=== PATIENT | male | born 1985 | race Caucasian/White ===

== ENCOUNTER 2017-09-18 23:46 | Emergency (ER) | payer BC, OTHER ==
[2017-09-19] MEDS ORDERED: Sodium Chloride 0.9% 1,000 ML IV ONE (00:52)
[2017-09-19] MEDS ORDERED: Sodium Chloride 0.9% 2.5 ML Syringe FLUSH PRN ×2 (00:52)
[2017-09-19] MEDS ORDERED: Ondansetron 4 MG/2 ML SDV IVPUSH ONE ×2 (00:52→04:10)
[2017-09-19] MEDS ORDERED: Sodium Chloride 0.9% 10 ML Syringe FLUSH PRN (00:52)
[2017-09-19] MEDS ORDERED: Morphine 2 MG/ML Syringe IVPUSH ONE (00:54)
[2017-09-19 01:22] LABS: CHLORIDE,CL 102 mmol/L (98-107); SODIUM,NA 138 mmol/L (136-148)
[2017-09-19] MEDS ORDERED: HYDROmorphone 2 MG/ML SDV IV ONE (01:36)
[2017-09-19] MEDS ORDERED: HYDROmorphone 1 MG/ML Syringe ONE (01:49)
[2017-09-19] MEDS ORDERED: HYDROmorphone 1 MG/ML Syringe IVPUSH ONE ×2 (01:52→04:14)
[2017-09-19] MEDS ORDERED: Iopamidol 755 Mg/ML 100 ML Bottle IVPUSH ONE (02:15)
[2017-09-19] MEDS ORDERED: Ciprofloxacin in D5W 400 MG in Premix Bag 1 BAG IV STA ×2 (03:17)
[2017-09-19] MEDS ORDERED: metroNIDAZOLE/Normal Saline 500 MG in Premix Bag 1 BAG IV ONE (03:17)
--- NOTE | 2017-09-19 03:30 | EDM.PDOC ---
ED HPI GENERAL MEDICAL PROBLEM - General Chief Complaint: Abdominal Pain Stated Complaint: LOWER ABDOMINAL PAIN Time Seen by Provider: 09/18/17 23:50 Source of Information: Reports: Patient, Family History Limitations: Reports: No Limitations - History of Present Illness INITIAL COMMENTS - FREE TEXT/NARRATIVE: HISTORY AND PHYSICAL: History of present illness: 32-year-old male presenting to urgent department with 3 days of left-sided belly pain. Patient states that 3 days ago he began to have some mild left-sided belly pain. States that he did have some associated nausea and vomiting. He did see a nurse practitioner who took x-rays which showed no constipation but she suggested that he go to the emergency department if continued to feel worse. States that today he was feeling better until this evening after eating began to have increased fever and chills as well as sharp left-sided abdominal pain intermittently. Also states he's had some associated body aches as well as some mild right red blood per rectum. Denies history of kidney stones, dysuria, hematuria, history of diverticulosis or diverticulitis. No history of abdominal surgery. Currently denies any chest pain, palpitations, shortness breath, syncopal episodes, or focal neurologic deficits. Pain is localized to the left side of his lower abdomen. On exam patient is acutely tender in the left lower quadrant. Abdomen is soft, nonrigid, positive bowel sounds, nondistended. Review of systems: As per history of present illness and below otherwise all systems reviewed and negative. Past medical history: As per history of present illness and as reviewed below otherwise noncontributory. Surgical history: As per history of present illness and as reviewed below otherwise noncontributory. Social history: No reported history of drug or alcohol abuse. Family history: As per history of present illness and as reviewed below otherwise noncontributory. Physical exam: HEENT: Atraumatic, normocephalic, pupils reactive, negative for conjunctival pallor or scleral icterus, mucous membranes moist, throat clear, neck supple, nontender, trachea midline. Lungs: Clear to auscultation, breath sounds equal bilaterally, chest nontender. Heart: S1S2, regular, negative for clicks, rubs, or JVD. Abdomen: Soft, nondistended, left lower quadrant tenderness. Negative for masses or hepatosplenomegaly. Negative for costovertebral tenderness. Pelvis: Stable nontender. Genitourinary: Deferred. Rectal: Deferred. Extremities: Atraumatic, negative for cords or calf pain. Neurovascular unremarkable. Neuro: Awake, alert, oriented. Cranial nerves II through XII unremarkable. Cerebellum unremarkable. Motor and sensory unremarkable throughout. Exam nonfocal. Diagnostics: CBC, CMP, lipase, CT abdomen pelvis Therapeutics: 1 L normal saline, 2 mg IV morphine, 1 mg Dilaudid IV, 400 mg IV ciprofloxacin, metronidazole 500 mg IV x1 Impression: Acute diverticulitis Plan: CBC, CMP, lipase were all unremarkable and showed no signs of leukocytosis. Patient remained afebrile throughout his stay. We were able to control his pain with a total of 2 mg of IV morphine and [address] the abdomen and pelvis revealed moderate wall thickening with surrounding inflammatory changes and a thickened diverticula present near the junction of the descending and sigmoid colon and in the mid descending colon most consistent with acute diverticulitis. I discussed the diagnosis at length with the patient and secondary to his current lack of comorbidities felt that he may be a good candidate for outpatient therapy. We discussed this at length and he and his agreed. He was given 400 mg IV ciprofloxacin and 500 mg IV metronidazole while in the emergency room. He was discharged in good condition with instructions to follow-up with general surgery in 3 days for reevaluation. He was also given a prescription for metronidazole 500 mg by mouth 3 times a day 10 days, and ciprofloxacin 500 mg by mouth twice a day 10 days. [place] 5/325 #10 Definitive disposition and diagnosis as appropriate pending reevaluation and review of above. Abd, LLQ Pain Score (Numeric/FACES): 7 - Related Data Allergies Allergy/AdvReac Type Severity Reaction Status Date / Time erythromycin base Allergy Cannot Verified 09/19/17 00:22 [Erythromycin Base] Remember Penicillins Allergy Cannot Verified 09/19/17 00:22 Remember Home Meds: Home Meds Simvastatin [Zocor] 40 mg PO BEDTIME 09/19/17 [History] Past Medical History Cardiovascular History: Reports: High Cholesterol - Infectious Disease History Infectious Disease History: Reports: Chicken Pox - Past Surgical History HEENT Surgical History: Reports: Adenoidectomy, LASIK, Naso-Sinus Surgery, Oral Surgery Musculoskeletal Surgical History: Reports: Other (See Below) Other Musculoskeletal Surgeries/Procedures:: R hand Social & Family History - Tobacco Use Smoking Status *Q: Current Every Day Smoker Years of Tobacco use: 10 Packs/Tins Daily: 1 - Caffeine Use Caffeine Use: Reports: Coffee, Energy Drinks, Soda - Recreational Drug Use Recreational Drug Use: No ED ROS GENERAL - Review of Systems Review Of Systems: ROS reveals no pertinent complaints other than HPI. ED EXAM, GENERAL - Physical Exam Exam: See Below Course - Vital Signs Last Recorded V/S: Last Vital Signs Temp 98.3 F 09/19/17 00:19 Pulse 62 09/19/17 02:10 Resp 16 09/19/17 02:10 BP 141/87 H 09/19/17 02:10 Pulse Ox 98 09/19/17 02:10 - Orders/Labs/Meds Orders: Active Orders 24 hr Category Date Time Status Abdomen Pelvis w Cont [CT] Stat Exams 09/19/17 00:52 Taken CULTURE URINE [RM] Stat Lab 09/19/17 00:52 Ordered UA W/MICROSCOPIC [URIN] Stat Lab 09/19/17 00:52 Ordered Ciprofloxacin in D5W [Cipro in D5W 400 MG/200 ML] 400 Med 09/19/17 03:17 Active mg Premix Bag 1 bag IV NOW Sodium Chloride 0.9% [Saline Flush] Med 09/19/17 00:52 Active 10 ml FLUSH ASDIRECTED PRN Sodium Chloride 0.9% [Saline Flush] Med 09/19/17 00:52 Active 2.5 ml FLUSH ASDIRECTED PRN Sodium Chloride 0.9% [Saline Flush] Med 09/19/17 00:52 Active 2.5 ml FLUSH ASDIRECTED PRN metroNIDAZOLE/Normal Saline [Flagyl 500 MG in NS 100 ML Med 09/19/17 03:17 Active ] 500 mg Premix Bag 1 bag IV ONETIME Saline Lock Insert [OM.PC] Stat Oth 09/19/17 00:52 Ordered Medication Orders Ciprofloxacin/Dextrose 400 mg/ (Premix) 200 mls @ 200 mls/hr IV NOW STA Stop: 09/19/17 04:16 Last Admin: 09/19/17 03:32 Dose: 200 mls/hr Metronidazole 500 mg/ Premix 100 mls @ 100 mls/hr IV ONETIME ONE Stop: 09/19/17 04:16 Last Admin: 09/19/17 03:33 Dose: 100 mls/hr Sodium Chloride (Saline Flush) 2.5 ml FLUSH ASDIRECTED PRN PRN Reason: Keep Vein Open Last Admin: 09/19/17 01:02 Dose: 2.5 ml Sodium Chloride (Saline Flush) 10 ml FLUSH ASDIRECTED PRN PRN Reason: Keep Vein Open Last Admin: 09/19/17 01:02 Dose: 10 ml Sodium Chloride (Saline Flush) 2.5 ml FLUSH ASDIRECTED PRN PRN Reason: Keep Vein Open Last Admin: 09/19/17 01:02 Dose: 2.5 ml Labs: Laboratory Tests 09/19/17 09/19/17 Range/Units 00:33 00:33 WBC 8.74 (4.0-11.0) K/uL RBC 4.28 L (4.50-5.90) M/uL Hgb 13.5 (13.0-17.0) g/dL Hct 38.2 (38.0-50.0) % MCV 89.3 (80.0-98.0) fL MCH 31.5 (27.0-32.0) pg MCHC 35.3 (31.0-37.0) g/dL RDW Std Deviation 38.9 (28.0-62.0) fl RDW Coeff of Evan 12 (11.0-15.0) % Plt Count 188 (150-400) K/uL MPV 10.50 (7.40-12.00) fL Neut % (Auto) 61.4 (48.0-80.0) % Lymph % (Auto) 29.9 (16.0-40.0) % Warrick % (Auto) 6.4 (0.0-15.0) % Eos % (Auto) 2.2 (0.0-7.0) % Baso % (Auto) 0.1 (0.0-1.5) % Neut # (Auto) 5.4 (1.4-5.7) K/uL Lymph # (Auto) 2.6 H (0.6-2.4) K/uL Warrick # (Auto) 0.6 (0.0-0.8) K/uL Eos # (Auto) 0.2 (0.0-0.7) K/uL Baso # (Auto) 0.0 (0.0-0.1) K/uL Nucleated RBC % 0.0 /100WBC Nucleated RBCs # 0 K/uL Sodium 138 (136-148) mmol/L Potassium 3.7 (3.5-5.1) mmol/L Chloride 102 (98-107) mmol/L Carbon Dioxide 25.6 (21.0-32.0) mmol/L BUN 15 (7.0-18.0) mg/dL Creatinine 1.2 (0.8-1.3) mg/dL Est Cr Clr Drug Dosing 91.48 mL/min Estimated GFR (MDRD) > 60.0 ml/min Glucose 115 H (74-106) mg/dL Calcium 9.0 (8.5-10.1) mg/dL Total Bilirubin 0.2 (0.2-1.0) mg/dL AST 20 (15-37) IU/L ALT 55 (14-63) IU/L Alkaline Phosphatase 53 (46-116) U/L Total Protein 7.0 (6.4-8.2) g/dL Albumin 3.8 (3.4-5.0) g/dL Globulin 3.2 (2.0-3.5) g/dL Albumin/Globulin Ratio 1.2 L (1.3-2.8) Lipase 144 (73-393) U/L Meds: Medications Generic Name Dose Route Start Last Admin Trade Name Freq PRN Reason Stop Dose Admin Ciprofloxacin/Dextrose 400 mg/ 200 mls @ 200 mls/hr 09/19/17 03:17 09/19/17 03:32 Premix IV 09/19/17 04:16 200 mls/hr NOW STA Administration Metronidazole 500 mg/ Premix 100 mls @ 100 mls/hr 09/19/17 03:17 09/19/17 03: 33 IV 09/19/17 04:16 100 mls/hr ONETIME ONE Administration Sodium Chloride 2.5 ml 09/19/17 00:52 09/19/17 01:02 Saline Flush FLUSH 2.5 ml ASDIRECTED PRN Administration Keep Vein Open Sodium Chloride 10 ml 09/19/17 00:52 09/19/17 01:02 Saline Flush FLUSH 10 ml ASDIRECTED PRN Administration Keep Vein Open Sodium Chloride 2.5 ml 09/19/17 00:52 09/19/17 01:02 Saline Flush FLUSH 2.5 ml ASDIRECTED PRN Administration Keep Vein Open Discontinued Medications Generic Name Dose Route Start Last Admin Trade Name Georgie PRN Reason Stop Dose Admin Hydromorphone HCl 1 mg 09/19/17 01:36 09/19/17 01:52 Dilaudid IV 09/19/17 01:37 Not Given ONETIME ONE Hydromorphone HCl Confirm 09/19/17 01:49 09/19/17 01:53 Dilaudid Administered 09/19/17 01:50 Not Given Dose 1 mg .ROUTE .STK-MED ONE Hydromorphone HCl 1 mg 09/19/17 01:52 09/19/17 01:53 Dilaudid IVPUSH 09/19/17 01:53 1 mg ONETIME ONE Administration Sodium Chloride 1,000 mls @ 999 mls/hr 09/19/17 00:52 09/19/17 01:01 Normal Saline IV 09/19/17 01:52 999 mls/hr .Bolus ONE Administration Iopamidol 100 ml 09/19/17 02:15 09/19/17 02:16 Isovue-370 (76%) IVPUSH 09/19/17 02:16 100 ml ONETIME ONE Administration Morphine Sulfate 2 mg 09/19/17 00:54 09/19/17 01:02 Morphine IVPUSH 09/19/17 00:55 2 mg ONETIME ONE Administration Ondansetron HCl 8 mg 09/19/17 00:52 09/19/17 01:00 Zofran IVPUSH 09/19/17 00:53 8 mg ONETIME ONE Administration Departure - Departure Time of Disposition: 04:03 Disposition: Home, Self-Care 01 Condition: Good Clinical Impression: Acute diverticulitis - Discharge Information Referrals: PCP,None [Primary Care Provider] - Forms: ED Department Discharge Additional Instructions: My general discharge The following information is given to patients seen in the emergency department who are being discharged to home. This information is to outline your options for follow-up care. We provide all patients seen in our emergency department with a follow-up referral. The need for follow-up, as well as the timing and circumstances, are variable depending upon the specifics of your emergency department visit. If you don't have a primary care physician on staff, we will provide you with a referral. We always advise you to contact your personal physician following an emergency department visit to inform them of the circumstance of the visit and for follow-up with them and/or the need for any referrals to a consulting specialist. The emergency department will also refer you to a specialist when appropriate. This referral assures that you have the opportunity for follow-up care with a specialist. All of these measure are taken in an effort to provide you with optimal care, which includes your follow-up. Under all circumstances we always encourage you to contact your private physician who remains a resource for coordinating your care. When calling for follow-up care, please make the office aware that this follow-up is from your recent emergency room visit. If for any reason you are refused follow-up, please contact the [facility] Emergency Department at and asked to speak to the emergency department charge nurse. My General Surgery [facility] Specialty Care - General Surgery Professional Building [address] [place] [address], [address] [place] [address] Follow-up with general surgery in 3 days as we discussed for reevaluation. Take antibiotics as prescribed. Follow-up with primary care provider. Return to emergency department for any new or worsening symptoms as we discussed. - My Orders Last 24 Hours: My Active Orders 09/19/17 00:52 Abdomen Pelvis w Cont [CT] Stat CULTURE URINE [RM] Stat UA W/MICROSCOPIC [URIN] Stat Sodium Chloride 0.9% [Saline Flush] 10 ml FLUSH ASDIRECTED PRN Sodium Chloride 0.9% [Saline Flush] 2.5 ml FLUSH ASDIRECTED PRN Sodium Chloride 0.9% [Saline Flush] 2.5 ml FLUSH ASDIRECTED PRN Saline Lock Insert [OM.PC] Stat 09/19/17 03:17 Ciprofloxacin in D5W [Cipro in D5W 400 MG/200 ML] 400 mg Premix Bag 1 bag IV NOW metroNIDAZOLE/Normal Saline [Flagyl 500 MG in NS 100 ML] 500 mg Premix Bag 1 bag IV ONETIME - Assessment/Plan Last 24 Hours: My Active Orders 09/19/17 00:52 Abdomen Pelvis w Cont [CT] Stat CULTURE URINE [RM] Stat UA W/MICROSCOPIC [URIN] Stat Sodium Chloride 0.9% [Saline Flush] 10 ml FLUSH ASDIRECTED PRN Sodium Chloride 0.9% [Saline Flush] 2.5 ml FLUSH ASDIRECTED PRN Sodium Chloride 0.9% [Saline Flush] 2.5 ml FLUSH ASDIRECTED PRN Saline Lock Insert [OM.PC] Stat 09/19/17 03:17 Ciprofloxacin in D5W [Cipro in D5W 400 MG/200 ML] 400 mg Premix Bag 1 bag IV NOW metroNIDAZOLE/Normal Saline [Flagyl 500 MG in NS 100 ML] 500 mg Premix Bag 1 bag IV ONETIME
[2017-09-19] MEDS ORDERED: Promethazine 25 MG/ML SDV IM ONE (04:30)
--- NOTE | 2017-09-19 16:37 | CT ---
EXAM DATE: 09/18/17 PATIENT'S AGE: 32 Patient: HAO BRAMBILA Facility: [place], [place] Site . Site : [id number] Study: CT Abdomen/Pelvis [id number] 2:26:53 AM Ordering Physician: Doctor Méndez Final Report: INDICATION: Left lower quadrant pain TECHNIQUE: CT Abdomen and pelvis without i.v. contrast. Coronal and sagittal reformats were obtained. CONTRAST: 100 mL Isovue 370 COMPARISON: None FINDINGS: Lower chest: Unremarkable. Liver: Mild fatty infiltration of the liver is noted. Spleen: Unremarkable. Pancreas: Unremarkable. Gallbladder: Unremarkable. Kidney: Unremarkable. No kidney or ureteral stones or obstruction seen. Adrenal: Unremarkable. Bowel: Moderate wall thickening with surrounding inflammatory changes and a thickened diverticula present near the junction of the descending and sigmoid colon and in the mid descending colon. The appendix is normal in appearance and size. Vascular: Unremarkable. Lymph: Mild left pelvic adenopathy is present with a 1 cm left external iliac lymph node seen. Peritoneum: Unremarkable. No pneumoperitoneum is seen. No significant ascites is noted. Pelvis: Unremarkable. Soft tissue: Unremarkable. Bone: Unremarkable for age. IMPRESSION: 1. Moderate wall thickening with surrounding inflammatory changes and a thickened diverticula present near the junction of the descending and sigmoid colon and in the mid descending colon. Findings are likely due to acute diverticulitis. Dictated by Conor Gray MD @ 09/19/2017 2:36:26 AM Please note that all CT scans at this facility use dose modulation, iterative reconstruction, and/or weight-based dosing when appropriate to reduce radiation dose to as low as reasonably achievable. Dictated by: Conor Gray MD @ 09/19/2017 02:36:31 (Electronic Signature) Report Signed by Proxy. [facility]OSPITALVan
== END 2017-09-19 05:40 | disposition home or self-care (01) ==
LOC: MW.ED 23:46
DX: K57.32 Diverticulitis of large intestine without perforation or abscess without bleeding (principal); F17.210 Nicotine dependence, cigarettes, uncomplicated; E78.00 Pure hypercholesterolemia, unspecified; Z88.1 Allergy status to other antibiotic agents; Z88.0 Allergy status to penicillin
CPT/HCPCS: 74177; 80053; 83690; 85025; 96361; 96365; 96368; 96372; 96375; 96376; 99284; J0744; J1170; J2270; J2405; J2550; J7040; Q9967

== ENCOUNTER 2017-10-02 15:54 | Emergency (ER) | payer BC, OTHER ==
[2017-10-02] MEDS ORDERED: Sodium Chloride 0.9% 10 ML Syringe FLUSH PRN (15:57)
[2017-10-02] MEDS ORDERED: Sodium Chloride 0.9% 2.5 ML Syringe FLUSH PRN (15:57)
--- NOTE | 2017-10-02 16:02 | EDM.PDOC ---
ED HPI GENERAL MEDICAL PROBLEM - General Stated Complaint: BLEEDING Time Seen by Provider: 10/02/17 15:56 Source of Information: Reports: Patient History Limitations: Reports: No Limitations - History of Present Illness INITIAL COMMENTS - FREE TEXT/NARRATIVE: History of present illness: []Patient was diagnosed with diverticulitis on September 18 and placed on Cipro and Flagyl. Today he noticed approximately 2 teaspoons of blood mixed with normal stool and called his doctor who recommended he come to the ER to be evaluated. Patient denies any fevers, chills he states he does have left lower quadrant pain since about .07/24. Review of systems: As per history of present illness and below otherwise all systems reviewed and negative. Past medical history: As per history of present illness and as reviewed below otherwise noncontributory. Surgical history: As per history of present illness and as reviewed below otherwise noncontributory. Social history: No reported history of drug or alcohol abuse. Family history: As per history of present illness and as reviewed below otherwise noncontributory. Physical exam: General: Well developed, well nourished in NAD HEENT: Atraumatic, normocephalic, pupils reactive, negative for conjunctival pallor or scleral icterus, mucous membranes moist, throat clear, neck supple, nontender, trachea midline. Lungs: Clear to auscultation, breath sounds equal bilaterally, chest nontender. Heart: S1S2, regular, negative for clicks, rubs, or JVD. Abdomen: Soft, nondistended, mild left lower quadrant tenderness without rebound or guarding. Negative for masses or hepatosplenomegaly. Negative for costovertebral tenderness. Pelvis: Stable nontender. Genitourinary: Deferred. Rectal: Deferred. Extremities: Atraumatic, negative for cords or calf pain. Neurovascular unremarkable. Neuro: Awake, alert, oriented. Cranial nerves II through XII unremarkable. Cerebellum unremarkable. Motor and sensory unremarkable throughout. Exam nonfocal. Diagnostics: []CBC is normal, CMP normal, Therapeutics: []Patient declined pain meds Impression: []Diverticulitis Plan: []Continue antibiotics as directed follow-up with general surgery return if symptoms worsen or change. Definitive disposition and diagnosis as appropriate pending reevaluation and review of above. Abdominal Pain Score (Numeric/FACES): 3 - Related Data Allergies Allergy/AdvReac Type Severity Reaction Status Date / Time erythromycin base Allergy Cannot Verified 10/02/17 16:02 [Erythromycin Base] Remember Penicillins Allergy Cannot Verified 10/02/17 16:02 Remember Home Meds: Home Meds Simvastatin [Zocor] 1 tab PO BEDTIME 09/19/17 [History] Ciprofloxacin HCl [Cipro] 1 tab PO BID 10/02/17 [History] Fish Oil/[place]-3 Fatty Acids [Fish Oil] 2 tab PO BID 10/02/17 [History] Ondansetron HCl [Zofran] 4 mg PO Q4HR #12 tablet 10/02/17 [Rx] metroNIDAZOLE [Metronidazole] 1 tab PO TID 10/02/17 [History] traMADol HCl [Tramadol HCl] 50 mg PO Q6H PRN #16 tablet 10/02/17 [Rx] Past Medical History Cardiovascular History: Reports: High Cholesterol - Infectious Disease History Infectious Disease History: Reports: Chicken Pox - Past Surgical History HEENT Surgical History: Reports: Adenoidectomy, LASIK, Naso-Sinus Surgery, Oral Surgery Musculoskeletal Surgical History: Reports: Other (See Below) Other Musculoskeletal Surgeries/Procedures:: R hand Social & Family History - Caffeine Use Caffeine Use: Reports: Coffee, Energy Drinks, Soda ED ROS GENERAL - Review of Systems Review Of Systems: ROS reveals no pertinent complaints other than HPI. ED EXAM, GI/ABD - Physical Exam Exam: See Below (See history of present illness) Course - Vital Signs Last Recorded V/S: Last Vital Signs Temp 98.6 F 10/02/17 16:04 Pulse 68 10/02/17 16:04 Resp 18 10/02/17 16:04 BP 146/91 H 10/02/17 16:04 Pulse Ox 99 10/02/17 16:04 - Orders/Labs/Meds Orders: Active Orders 24 hr Category Date Time Status Ondansetron [Zofran ODT] Med 10/02/17 17:00 Once 4 mg PO ONETIME ONE Sodium Chloride 0.9% [Saline Flush] Med 10/02/17 15:57 Active 10 ml FLUSH ASDIRECTED PRN Sodium Chloride 0.9% [Saline Flush] Med 10/02/17 15:57 Active 2.5 ml FLUSH ASDIRECTED PRN Saline Lock Insert [OM.PC] Stat Oth 10/02/17 15:57 Ordered Medication Orders Sodium Chloride (Saline Flush) 10 ml FLUSH ASDIRECTED PRN PRN Reason: Keep Vein Open Last Admin: 10/02/17 16:13 Dose: 10 ml Sodium Chloride (Saline Flush) 2.5 ml FLUSH ASDIRECTED PRN PRN Reason: Keep Vein Open Last Admin: 10/02/17 16:13 Dose: 2.5 ml Labs: Laboratory Tests 10/02/17 10/02/17 Range/Units 16:07 16:07 WBC 7.92 (4.0-11.0) K/uL RBC 4.36 L (4.50-5.90) M/uL Hgb 13.6 (13.0-17.0) g/dL Hct 39.1 (38.0-50.0) % MCV 89.7 (80.0-98.0) fL MCH 31.2 (27.0-32.0) pg MCHC 34.8 (31.0-37.0) g/dL RDW Std Deviation 39.8 (28.0-62.0) fl RDW Coeff of Evan 12 (11.0-15.0) % Plt Count 218 (150-400) K/uL MPV 10.20 (7.40-12.00) fL Neut % (Auto) 62.4 (48.0-80.0) % Lymph % (Auto) 30.3 (16.0-40.0) % Emmet % (Auto) 5.4 (0.0-15.0) % Eos % (Auto) 1.5 (0.0-7.0) % Baso % (Auto) 0.4 (0.0-1.5) % Neut # (Auto) 4.9 (1.4-5.7) K/uL Lymph # (Auto) 2.4 (0.6-2.4) K/uL Emmet # (Auto) 0.4 (0.0-0.8) K/uL Eos # (Auto) 0.1 (0.0-0.7) K/uL Baso # (Auto) 0.0 (0.0-0.1) K/uL Nucleated RBC % 0.0 /100WBC Nucleated RBCs # 0 K/uL Sodium 139 (136-148) mmol/L Potassium 3.9 (3.5-5.1) mmol/L Chloride 104 (98-107) mmol/L Carbon Dioxide 27.2 (21.0-32.0) mmol/L BUN 19 H (7.0-18.0) mg/dL Creatinine 1.2 (0.8-1.3) mg/dL Est Cr Clr Drug Dosing 90.01 mL/min Estimated GFR (MDRD) > 60.0 ml/min Glucose 97 (74-106) mg/dL Calcium 8.7 (8.5-10.1) mg/dL Total Bilirubin 0.2 (0.2-1.0) mg/dL AST 23 (15-37) IU/L ALT 50 (14-63) IU/L Alkaline Phosphatase 48 (46-116) U/L Total Protein 7.3 (6.4-8.2) g/dL Albumin 4.0 (3.4-5.0) g/dL Globulin 3.3 (2.0-3.5) g/dL Albumin/Globulin Ratio 1.2 L (1.3-2.8) Meds: Medications Generic Name Dose Route Start Last Admin Trade Name Freq PRN Reason Stop Dose Admin Sodium Chloride 10 ml 10/02/17 15:57 10/02/17 16:13 Saline Flush FLUSH 10 ml ASDIRECTED PRN Administration Keep Vein Open Sodium Chloride 2.5 ml 10/02/17 15:57 10/02/17 16:13 Saline Flush FLUSH 2.5 ml ASDIRECTED PRN Administration Keep Vein Open Departure - Departure Time of Disposition: 16:57 Disposition: Home, Self-Care 01 Condition: Good Clinical Impression: Diverticulitis - Discharge Information *PRESCRIPTION DRUG MONITORING PROGRAM REVIEWED*: Not Applicable Prescriptions: Ondansetron HCl [Zofran] 4 mg PO Q4HR #12 tablet traMADol HCl [Tramadol HCl] 50 mg PO Q6H PRN #16 tablet PRN Reason: Pain Referrals: Emmanuel Pendleton MD [Primary Care Provider] - Additional Instructions: The following information is given to patients seen in the emergency department who are being discharged to home. This information is to outline your options for follow-up care. We provide all patients seen in our emergency department with a follow-up referral. The need for follow-up, as well as the timing and circumstances, are variable depending upon the specifics of your emergency department visit. If you don't have a primary care physician on staff, we will provide you with a referral. We always advise you to contact your personal physician following an emergency department visit to inform them of the circumstance of the visit and for follow-up with them and/or the need for any referrals to a consulting specialist. The emergency department will also refer you to a specialist when appropriate. This referral assures that you have the opportunity for follow-up care with a specialist. All of these measure are taken in an effort to provide you with optimal care, which includes your follow-up. Under all circumstances we always encourage you to contact your private physician who remains a resource for coordinating your care. When calling for follow-up care, please make the office aware that this follow-up is from your recent emergency room visit. If for any reason you are refused follow-up, please contact the Emergency Department at and asked to speak to the emergency department charge nurse. Rocky, tramadol, continue her antibiotics as directed follow-up with general surgery Specialty Care - General Surgery Professional Building [address] [place] [address], [address] [place] [address] - My Orders Last 24 Hours: My Active Orders 10/02/17 15:57 Sodium Chloride 0.9% [Saline Flush] 10 ml FLUSH ASDIRECTED PRN Sodium Chloride 0.9% [Saline Flush] 2.5 ml FLUSH ASDIRECTED PRN Saline Lock Insert [OM.PC] Stat 10/02/17 17:00 Ondansetron [Zofran ODT] 4 mg PO ONETIME ONE - Assessment/Plan Last 24 Hours: My Active Orders 10/02/17 15:57 Sodium Chloride 0.9% [Saline Flush] 10 ml FLUSH ASDIRECTED PRN Sodium Chloride 0.9% [Saline Flush] 2.5 ml FLUSH ASDIRECTED PRN Saline Lock Insert [OM.PC] Stat 10/02/17 17:00 Ondansetron [Zofran ODT] 4 mg PO ONETIME ONE
[2017-10-02 16:32] LABS: CHLORIDE,CL 104 mmol/L (98-107); SODIUM,NA 139 mmol/L (136-148)
[2017-10-02] MEDS ORDERED: Ondansetron 4 MG Tab.DIS PO ONE (17:00)
== END 2017-10-02 17:16 | disposition home or self-care (01) ==
LOC: MW.ED 15:54
DX: K57.92 Diverticulitis of intestine, part unspecified, without perforation or abscess without bleeding (principal); E78.00 Pure hypercholesterolemia, unspecified; Z88.1 Allergy status to other antibiotic agents; Z88.0 Allergy status to penicillin
CPT/HCPCS: 36415; 80053; 85025; 99284; A9270

== ENCOUNTER 2017-12-05 07:57 | Day surgery (SDC) | payer OTHER, BC ==
[~2017-12-05 07:57] MED LIST: Lactated Ringers 1,000 ML IV SCH
--- NOTE | 2017-12-05 08:46 | PCM.PREANE ---
Preanesthetic Assessment - Anesthesia/Transfusion/Family Hx Anesthesia History: Prior Anesthesia Without Reaction Other Type of Anesthesia Reaction Comment: "dad is slow to wake up" Family History of Anesthesia Reaction: No Transfusion History: No Prior Transfusion(s) Intubation History: Unknown - Review of Systems General: No Symptoms Pulmonary: No Symptoms Cardiovascular: No Symptoms Gastrointestinal: Other (rectal pain) Neurological: No Symptoms Other: Reports: None - Physical Assessment Height: 1.75 m Weight: 122.47 kg ASA Class: 2 Mental Status: Alert & Oriented x3 Airway Class: Mallampati = 3 Dentition: Reports: Normal Dentition Thyro-Mental Finger Breadths: 3 Mouth Opening Finger Breadths: 2 ROM/Head Extension: Full Lungs: Clear to Auscultation, Normal Respiratory Effort Cardiovascular: Regular Rate, Regular Rhythm - Allergies Allergies/Adverse Reactions: Allergies Allergy/AdvReac Type Severity Reaction Status Date / Time erythromycin base Allergy "eye Verified 12/02/17 10:47 [Erythromycin Base] infection got worse" Penicillins Allergy Cannot Verified 12/02/17 10:42 Remember - Blood Blood Available: No - Anesthesia Plan Pre-Op Medication Ordered: None - Acknowledgements Anesthesia Type Planned: MAC Pt an Appropriate Candidate for the Planned Anesthesia: Yes Alternatives and Risks of Anesthesia Discussed w Pt/Guardian: Yes Pt/Guardian Understands and Agrees with Anesthesia Plan: Yes PreAnesthesia Questionnaire HEENT History: Reports: Allergic Rhinitis Cardiovascular History: Reports: High Cholesterol Respiratory History: Reports: Asthma, Sleep Apnea (uses CPAP) Other Respiratory History: sports induced asthma as a teenager Gastrointestinal History: Reports: Diverticulosis Other Gastrointestinal History: diverticulitis, occasional heartburn Musculoskeletal History: Reports: Fracture Other Musculoskeletal History: hx fx hand and left big toe Psychiatric History: Reports: Anxiety, Depression Endocrine/Metabolic History: Reports: Obesity/BMI 30+ (BMI 39.9) - Infectious Disease History Infectious Disease History: Reports: Chicken Pox - Past Surgical History Head Surgeries/Procedures: Reports: None HEENT Surgical History: Reports: Adenoidectomy, LASIK, Naso-Sinus Surgery, Oral Surgery, Other (See Below) (LASIC) Musculoskeletal Surgical History: Reports: Other (See Below) Other Musculoskeletal Surgeries/Procedures:: R hand x2 ( 5th metacarpal) plus removal of screws - SUBSTANCE USE Smoking Status *Q: Former Smoker Tobacco Use Within Last Twelve Months: Cigarettes (swiched to e-cigarettes 6 months ago- doing much better since) Recreational Drug Use History: No - HOME MEDS Home Medications: Home Meds Simvastatin [Zocor] 1 tab PO BEDTIME 09/19/17 [History] Fish Oil/[place]-3 Fatty Acids [Fish Oil] 2 tab PO BID 10/02/17 [History] Multivitamin [Multivitamins] 1 tab PO DAILY 12/02/17 [History] - CURRENT (IN HOUSE) MEDS Current Meds: Current Medications Lactated Ringer's (Ringers, Lactated) 1,000 mls @ 125 mls/hr IV ASDIRECTED MARLENE
[2017-12-05] MEDS ORDERED: fentaNYL 100 MCG/2 ML SDV ONE (09:11)
[2017-12-05] MEDS ORDERED: Propofol 200 MG/20 ML SDV ONE (09:11)
[2017-12-05] MEDS ORDERED: Midazolam 1 MG/ML 2 ML SDV ONE (09:11)
--- NOTE | 2017-12-05 09:46 | PCM.OPNOTE ---
- General Post-Op/Procedure Note Date of Surgery/Procedure: 12/05/17 Operative Procedure(s): colonoscopy Findings: see next one; entered in error Pre Op Diagnosis: diverticulitis Condition: Good
--- NOTE | 2017-12-05 11:09 | PCM.OPNOTE ---
- General Post-Op/Procedure Note Date of Surgery/Procedure: 12/05/17 Operative Procedure(s): colonoscopy w snare polypectomy and tattoo Findings: see dict [id number] Pre Op Diagnosis: diverticulitis Post-Op Diagnosis: colon polyp and diverticulosis Anesthesia Technique: Moderate Sedation Primary Surgeon: Emmanuel Pendleton Pathology: 1.5 cm cauliflower like polyp snare at distance 35 cm when scope went out Complications: None Condition: Good Free Text/Narrative:: Intake & Output 12/04/17 12/05/17 12/05/17 22:59 06:59 14:59 Intake Total 500 Balance 500
--- NOTE | 2017-12-05 13:18 | OR ---
SURGEON: Emmanuel Pendleton MD DATE OF PROCEDURE: 12/05/2017 PREOPERATIVE DIAGNOSIS: Recurrent diverticulitis. POSTOPERATIVE DIAGNOSES: Large polyp and diverticulosis. PROCEDURE PERFORMED: Colonoscopy with snare polypectomy and tattoo. PROCEDURE IN DETAIL: The patient was taken to the endoscopy room. A time out was called, patient identified, and procedure identified. Diprivan was then administrated. Patient went from awake to sleep, hearing doctor talking or door closing is normal. Perineum inspection and digital examination were then performed. A well- lubricated colonoscope was gently inserted through the rectum, advanced past the rectosigmoid junction, the descending colon, splenic flexure, transverse colon, hepatic flexure, ascending colon, arrived to the cecum. Cecum was identified as dictated in the finding. Then the scope was carefully withdrawn while attention was paid to the mucosal surface for any abnormality. Air will be sucked out during the scope withdrawal. At the rectum, retroflexed to examine any rectal diseases, fistula or hemorrhoids. During mucosal examination, polyp encountered. Using snare equipment, the polyp was then snared off using electrocautery, followed w tatto. The Patient tolerated procedure well. There were no intraoperative complications, and Dr. Pendleton was present throughout the whole procedure. FINDINGS: 1. The patient is easily sedated with [employer] and Diprivan. The patient is soundly snoring. 2. Bowel prep is average with some liquid stool and some semi-formed stool, not very bad average. 3. Colon is rather straight forward. Cecum indicated by ileocecal fold, one- to-one indentation, light emittance, and appendiceal orifice is not observed. Mucosa examined upon scope pulling out and the patient is not too small, cauliflower appearance polyp at distant 70 when scope went in and distance 35 when scope came out. Polyp was snare polypectomy and captured and sent for pathology. Area was tattooed. Again, when the scope came out is about 35cm , when went in it was 70 cm, and other than that, the patient has pretty significant diverticulosis on L colon, no signs or symptoms of diverticulitis. No inflammation, mass, growth, inflammation, stricture, AV malformation, bleeding. The patient has some internal hemorrhoids. No external hemorrhoids. The patient would need to discuss the pathology of the polyp and likely repeat colonoscopy. If the pathology is favorable, we will likely repeat colonoscopy in 12 to 18 months. LEXI / JOSE /[id number] MTDVan
== END 2017-12-05 10:58 | disposition home or self-care (01) ==
LOC: MW.SDS 07:57
PROVIDERS: ATTEND Surgery
DX: K57.30 Diverticulosis of large intestine without perforation or abscess without bleeding (principal); K63.5 Polyp of colon; K64.8 Other hemorrhoids; M19.90 Unspecified osteoarthritis, unspecified site; J45.909 Unspecified asthma, uncomplicated; E78.00 Pure hypercholesterolemia, unspecified; G47.30 Sleep apnea, unspecified; F41.9 Anxiety disorder, unspecified; E66.9 Obesity, unspecified; Z68.39 Body mass index [BMI] 39.0-39.9, adult; Z79.899 Other long term (current) drug therapy; Z88.0 Allergy status to penicillin; Z87.891 Personal history of nicotine dependence
CPT/HCPCS: 45381; 45385; J2250; J2704; J3010; J7120

== ENCOUNTER 2018-05-18 09:53 | Emergency (ER) | payer OTHER, BC ==
--- NOTE | 2018-05-18 10:04 | EDM.PDOC ---
ED HPI GENERAL MEDICAL PROBLEM - General Chief Complaint: Gastrointestinal Problem Stated Complaint: COUGH Time Seen by Provider: 05/18/18 10:03 Source of Information: Reports: Patient History Limitations: Reports: No Limitations - History of Present Illness INITIAL COMMENTS - FREE TEXT/NARRATIVE: HISTORY AND PHYSICAL: History of present illness: Patient is a 33-year-old male who presents to the emergency room with complaints of left-sided abdominal pain. He states within the last 7 months he has been diagnosed with diverticulitis, was treated with antibiotics, and had a follow-up colonoscopy. He states they did find one polyp which was noncancerous and follows with Dr. Pendleton regarding this new diagnosis. He started having left sided abdominal pain approximately 2 days ago and was concerned that he was having a diverticulitis flareup and wanted to be evaluated before the pain became too severe. He has had subjective fevers and chills. Denies any chest pain, shortness of breath or cough. Mild nausea without vomiting. Denies any diarrhea, blood in his stools, constipation or dysuria. Review of systems: As per history of present illness and below otherwise all systems reviewed and negative. Past medical history: As per history of present illness and as reviewed below otherwise noncontributory. Surgical history: As per history of present illness and as reviewed below otherwise noncontributory. Social history: See social history for further information Family history: As per history of present illness and as reviewed below otherwise noncontributory. Physical exam: General: Well-developed and well-nourished 33-year-old male. Alert and oriented. Nontoxic appearing and in no acute distress. HEENT: Atraumatic, normocephalic, pupils equal and reactive bilaterally, negative for conjunctival pallor or scleral icterus, mucous membranes moist, TMs normal bilaterally, throat clear, neck supple, nontender, trachea midline. No drooling or trismus noted. No meningeal signs. No hot potato voice noted. Lungs: Clear to auscultation, breath sounds equal bilaterally, chest nontender. Heart: S1S2, regular rate and rhythm without overt murmur Abdomen: Soft, nondistended, left-sided abdominal pain. Negative for masses or hepatosplenomegaly. Negative for costovertebral tenderness. Pelvis: Stable nontender. Genitourinary: Deferred. Rectal: Deferred. Skin: Intact, warm, dry. No lesions or rashes noted. Extremities: Atraumatic, negative for cords or calf pain. Neurovascular unremarkable. Neuro: Awake, alert, oriented. Cranial nerves II through XII unremarkable. Cerebellum unremarkable. Motor and sensory unremarkable throughout. Exam nonfocal. Notes: Pain medication was offered, he declines at this time. Lab work is unremarkable. The CT of the abdomen and pelvis shows acute diverticulitis involving the proximal descending colon. I did speak with Dr. Dejesus, general surgeon on-call who states he should have appropriate follow-up in the next 2 weeks for reevaluation. Patient will be placed on antibiotics and given pain medication for when necessary pain management. This information was shared with the patient. Supportive care measures were reviewed and discussed. Voices understanding and is agreeable to plan of care. Denies any further questions or concerns at this time. Diagnostics: CBC, CMP, lipase, UA, CT abdomen and pelvis Therapeutics: IV fluid, Zofran Prescription: Cipro Flaggyl Tramadol (#20) Impression: Diverticulitis Plan: 1. Please take the antibiotic as prescribed. 2. Tylenol and/or ibuprofen as needed for pain management. You may use the tramadol for moderate to severe pain. This medication may cause drowsiness a do not take it will driving or needing to be functioning outside of the house. 3. Please follow-up with the general surgeon for reevaluation after completion of your antibiotic. He may follow-up with them or your primary care provider in the next 1-2 days as we discussed. Return to the ED as needed and as discussed. Definitive disposition and diagnosis as appropriate pending reevaluation and review of above. LOeft middle abdominal pain Pain Score (Numeric/FACES): 3 - Related Data Allergies Allergy/AdvReac Type Severity Reaction Status Date / Time erythromycin base Allergy "eye Verified 05/18/18 10:09 [Erythromycin Base] infection got worse" Penicillins Allergy Cannot Verified 05/18/18 10:09 Remember Home Meds: Home Meds Simvastatin [Zocor] 1 tab PO BEDTIME 09/19/17 [History] Fish Oil/[place]-3 Fatty Acids [Fish Oil] 2 tab PO BID 10/02/17 [History] Multivitamin [Multivitamins] 1 tab PO DAILY 12/02/17 [History] Past Medical History HEENT History: Reports: Allergic Rhinitis Cardiovascular History: Reports: High Cholesterol Respiratory History: Reports: Asthma, Sleep Apnea (uses CPAP) Other Respiratory History: sports induced asthma as a teenager Gastrointestinal History: Reports: Diverticulosis Other Gastrointestinal History: diverticulitis, occasional heartburn Musculoskeletal History: Reports: Fracture Other Musculoskeletal History: hx fx hand and left big toe Psychiatric History: Reports: Anxiety, Depression Endocrine/Metabolic History: Reports: Obesity/BMI 30+ (BMI 39.9) - Infectious Disease History Infectious Disease History: Reports: Chicken Pox - Past Surgical History Head Surgeries/Procedures: Reports: None HEENT Surgical History: Reports: Adenoidectomy, LASIK, Naso-Sinus Surgery, Oral Surgery, Other (See Below) (LASIC) Musculoskeletal Surgical History: Reports: Other (See Below) Other Musculoskeletal Surgeries/Procedures:: R hand x2 ( 5th metacarpal) plus removal of screws Social & Family History - Family History Family Medical History: Noncontributory - Caffeine Use Caffeine Use: Reports: Coffee, Energy Drinks, Soda ED ROS GENERAL - Review of Systems Review Of Systems: ROS reveals no pertinent complaints other than HPI. ED EXAM, GI/ABD - Physical Exam Exam: See Below (See dictation) Course - Vital Signs Last Recorded V/S: Last Vital Signs Temp 98.1 F 05/18/18 10:10 Pulse 86 05/18/18 10:10 Resp 16 05/18/18 10:10 BP 155/93 H 05/18/18 10:10 Pulse Ox 100 05/18/18 10:10 - Orders/Labs/Meds Labs: Laboratory Tests 05/18/18 05/18/18 05/18/18 Range/Units 10:02 10:02 10:27 WBC 7.25 (4.0-11.0) K/uL RBC 4.43 L (4.50-5.90) M/uL Hgb 13.7 (13.0-17.0) g/dL Hct 40.0 (38.0-50.0) % MCV 90.3 (80.0-98.0) fL MCH 30.9 (27.0-32.0) pg MCHC 34.3 (31.0-37.0) g/dL RDW Std Deviation 40.3 (28.0-62.0) fl RDW Coeff of Evan 12 (11.0-15.0) % Plt Count 161 (150-400) K/uL MPV 10.90 (7.40-12.00) fL Neut % (Auto) 67.5 (48.0-80.0) % Lymph % (Auto) 25.4 (16.0-40.0) % [place] % (Auto) 5.9 (0.0-15.0) % Eos % (Auto) 1.1 (0.0-7.0) % Baso % (Auto) 0.1 (0.0-1.5) % Neut # (Auto) 4.9 (1.4-5.7) K/uL Lymph # (Auto) 1.8 (0.6-2.4) K/uL [place] # (Auto) 0.4 (0.0-0.8) K/uL Eos # (Auto) 0.1 (0.0-0.7) K/uL Baso # (Auto) 0.0 (0.0-0.1) K/uL Nucleated RBC % 0.0 /100WBC Nucleated RBCs # 0 K/uL Sodium 140 (136-148) mmol/L Potassium 4.1 (3.5-5.1) mmol/L Chloride 104 (98-107) mmol/L Carbon Dioxide 26.7 (21.0-32.0) mmol/L BUN 15 (7.0-18.0) mg/dL Creatinine 1.3 (0.8-1.3) mg/dL Est Cr Clr Drug Dosing 82.33 mL/min Estimated GFR (MDRD) > 60.0 ml/min Glucose 102 (74-106) mg/dL Calcium 9.4 (8.5-10.1) mg/dL Total Bilirubin 0.6 (0.2-1.0) mg/dL AST 12 L (15-37) IU/L ALT 26 (14-63) IU/L Alkaline Phosphatase 88 (46-116) U/L Total Protein 7.6 (6.4-8.2) g/dL Albumin 4.0 (3.4-5.0) g/dL Globulin 3.6 (2.6-4.0) g/dL Albumin/Globulin Ratio 1.1 (0.9-1.6) Lipase 117 (73-393) U/L Urine Color YELLOW Urine Appearance CLEAR Urine pH 6.0 (5.0-8.0) Ur Specific [place] 1.015 (1.001-1.035) Urine Protein NEGATIVE (NEGATIVE) mg/dL Urine Glucose (UA) NEGATIVE (NEGATIVE) mg/dL Urine Ketones NEGATIVE (NEGATIVE) mg/dL Urine Occult Blood NEGATIVE (NEGATIVE) Urine Nitrite NEGATIVE (NEGATIVE) Urine Bilirubin NEGATIVE (NEGATIVE) Urine Urobilinogen 0.2 (<2.0) EU/dL Ur Leukocyte Esterase NEGATIVE (NEGATIVE) Meds: Medications Discontinued Medications Generic Name Dose Route Start Last Admin Trade Name Freq PRN Reason Stop Dose Admin Sodium Chloride 1,000 mls @ 999 mls/hr 05/18/18 10:11 05/18/18 10:29 Normal Saline IV 05/18/18 11:11 999 mls/hr STAT ONE Administration Iopamidol 100 ml 05/18/18 12:12 05/18/18 12:13 Isovue Multipack-370 (76%) IVPUSH 05/18/18 12:13 100 ml ONETIME ONE Administration Ondansetron HCl 4 mg 05/18/18 10:11 05/18/18 10:29 Zofran IVPUSH 05/18/18 10:12 4 mg ONETIME ONE Administration Departure - Departure Time of Disposition: 12:38 Disposition: Home, Self-Care 01 Clinical Impression: Diverticulitis - Discharge Information Instructions: Diverticulitis, [id number] Referrals: Donny Benton MD [Primary Care Provider] - Forms: ED Department Discharge Additional Instructions: The following information is given to patients seen in the emergency department who are being discharged to home. This information is to outline your options for follow-up care. We provide all patients seen in our emergency department with a follow-up referral. The need for follow-up, as well as the timing and circumstances, are variable depending upon the specifics of your emergency department visit. If you don't have a primary care physician on staff, we will provide you with a referral. We always advise you to contact your personal physician following an emergency department visit to inform them of the circumstance of the visit and for follow-up with them and/or the need for any referrals to a consulting specialist. The emergency department will also refer you to a specialist when appropriate. This referral assures that you have the opportunity for follow-up care with a specialist. All of these measure are taken in an effort to provide you with optimal care, which includes your follow-up. Under all circumstances we always encourage you to contact your private physician who remains a resource for coordinating your care. When calling for follow-up care, please make the office aware that this follow-up is from your recent emergency room visit. If for any reason you are refused follow-up, please contact the [facility] Emergency Department at and asked to speak to the emergency department charge nurse. [facility] Primary Care [address] [place] [id number] [facility] Specialty Care - General Surgery Professional Building [address] [place] [address], [address] [place] [address] 1. Please take the antibiotic as prescribed. 2. Tylenol and/or ibuprofen as needed for pain management. You may use the tramadol for moderate to severe pain. This medication may cause drowsiness a do not take it will driving or needing to be functioning outside of the house. 3. Please follow-up with the general surgeon for reevaluation after completion of your antibiotic. He may follow-up with them or your primary care provider in the next 1-2 days as we discussed. Return to the ED as needed and as discussed.
[2018-05-18] MEDS ORDERED: Sodium Chloride 0.9% 1,000 ML IV ONE (10:11)
[2018-05-18] MEDS ORDERED: Ondansetron 4 MG/2 ML SDV IVPUSH ONE (10:11)
[2018-05-18 10:56] LABS: CHLORIDE,CL 104 mmol/L (98-107); SODIUM,NA 140 mmol/L (136-148)
[2018-05-18] MEDS ORDERED: Iopamidol 755 MG/ML 500 ML Multipack Bottle IVPUSH ONE (12:12)
--- NOTE | 2018-05-18 12:28 | CT ---
Indication: History of diverticulitis left lower quadrant pain Technique: Contrast enhanced CT abdomen and pelvis. Coronal sagittal reformatted images obtained. 100 mL Isovue 370. Comparison: CT abdomen pelvis 09/19/2017. Findings: Heart size is normal. No pericardial effusion or pleural effusion. The lung bases are clear. Liver spleen pancreas adrenal glands appear unremarkable gallbladder is unremarkable no abdominal aortic aneurysm. Symmetric enhancement of both kidneys. No hydronephrosis. Normal appendix. Urinary bladder is unremarkable. Diverticulosis. Pericolonic inflammatory change adjacent to the proximal descending colon with bowel wall thickening. No abscess or free air. No suspicious bony lesions. Impression: 1. Acute diverticulitis involving the proximal descending colon. No abscess or free air. Please note that all CT scans at this facility use dose modulation, iterative reconstruction, and/or weight-based dosing when appropriate to reduce radiation dose to as low as reasonably achievable. Dictated by Yanet Vickers MD @ May 18 2018 12:19PM Signed by Dr. Yanet Vickers @ May 18 2018 12:27PM
== END 2018-05-18 12:51 | disposition home or self-care (01) ==
LOC: MW.ED 09:53
DX: K57.32 Diverticulitis of large intestine without perforation or abscess without bleeding (principal); E66.9 Obesity, unspecified; Z88.0 Allergy status to penicillin; Z88.1 Allergy status to other antibiotic agents; Z90.49 Acquired absence of other specified parts of digestive tract
CPT/HCPCS: 74177; 80053; 81003; 83690; 85025; 96361; 96374; 99284; J2405; J7040; Q9967

== ENCOUNTER 2018-07-21 06:17 | Day surgery (SDC) | payer OTHER, BC ==
[~2018-07-21 06:17] MED LIST changes: +Sodium Chloride 0.9% 10 ML SDV IV PRN; +Sodium Chloride 0.9% 10 ML Syringe FLUSH PRN; +Sodium Chloride 0.9% 2.5 ML Syringe FLUSH PRN
[2018-07-21] MEDS ORDERED: Midazolam 1 MG/ML 2 ML SDV ONE (06:59)
[2018-07-21] MEDS ORDERED: Propofol 200 MG/20 ML SDV ONE ×2 (06:59→08:11)
[2018-07-21] MEDS ORDERED: fentaNYL 100 MCG/2 ML SDV ONE (06:59)
--- NOTE | 2018-07-21 07:23 | PCM.PREANE ---
Preanesthetic Assessment - Anesthesia/Transfusion/Family Hx Anesthesia History: Prior Anesthesia Without Reaction Other Type of Anesthesia Reaction Comment: "dad had hard time coming out of anesthesia" Family History of Anesthesia Reaction: No Transfusion History: No Prior Transfusion(s) Intubation History: Unknown - Review of Systems General: No Symptoms Pulmonary: No Symptoms Cardiovascular: No Symptoms Gastrointestinal: Hematochezia, Other (follow-up for diverticulitis) Neurological: No Symptoms Other: Reports: None - Physical Assessment Height: 1.75 m Weight: 119.295 kg ASA Class: 2 Mental Status: Alert & Oriented x3 Airway Class: Mallampati = 2 Dentition: Reports: Normal Dentition Thyro-Mental Finger Breadths: 3 Mouth Opening Finger Breadths: 2 ROM/Head Extension: Full Lungs: Clear to Auscultation, Normal Respiratory Effort Cardiovascular: Regular Rate, Regular Rhythm - Allergies Allergies/Adverse Reactions: Allergies Allergy/AdvReac Type Severity Reaction Status Date / Time erythromycin base Allergy "eye Verified 07/17/18 12:59 [Erythromycin Base] infection got worse" Penicillins Allergy Cannot Verified 07/17/18 12:59 Remember - Blood Blood Available: No - Anesthesia Plan Pre-Op Medication Ordered: None - Acknowledgements Anesthesia Type Planned: MAC Pt an Appropriate Candidate for the Planned Anesthesia: Yes Alternatives and Risks of Anesthesia Discussed w Pt/Guardian: Yes Pt/Guardian Understands and Agrees with Anesthesia Plan: Yes PreAnesthesia Questionnaire HEENT History: Reports: Allergic Rhinitis, Other (See Below) Other HEENT History: wears glasses/contacts Cardiovascular History: Reports: High Cholesterol Respiratory History: Reports: Asthma, Sleep Apnea Other Respiratory History: sports induced asthma as a teenager, uses CPAP Gastrointestinal History: Reports: Colon Polyp, Diverticulosis, Hemorrhoids Other Gastrointestinal History: diverticulitis last year, occasional heartburn Genitourinary History: Reports: None Musculoskeletal History: Reports: Fracture Other Musculoskeletal History: hx fx hand and left big toe Neurological History: Reports: None Psychiatric History: Reports: Anxiety, Depression Endocrine/Metabolic History: Reports: Obesity/BMI 30+ (BMI 38.8) Hematologic History: Reports: None Immunologic History: Reports: None Oncologic (Cancer) History: Reports: None Dermatologic History: Reports: None - Infectious Disease History Infectious Disease History: Reports: Chicken Pox - Past Surgical History Head Surgeries/Procedures: Reports: None HEENT Surgical History: Reports: Adenoidectomy, Naso-Sinus Surgery, Oral Surgery Cardiovascular Surgical History: Reports: None Respiratory Surgical History: Reports: None GI Surgical History: Reports: Colonoscopy (within last year), Polypectomy Male Surgical History: Reports: None Endocrine Surgical History: Reports: None Neurological Surgical History: Reports: None Musculoskeletal Surgical History: Reports: Other (See Below) Other Musculoskeletal Surgeries/Procedures:: R hand x2 ( 5th metacarpal) plus removal of screws Oncologic Surgical History: Reports: None Dermatological Surgical History: Reports: None - SUBSTANCE USE Smoking Status *Q: Former Smoker Recreational Drug Use History: No - HOME MEDS Home Medications: Home Meds Simvastatin [Zocor] 1 tab PO BEDTIME 09/19/17 [History] Multivitamin [Multivitamins] 1 tab PO DAILY 12/02/17 [History] Fish Oil/[place]-3 Fatty Acids [Fish Oil 1,000 MG] 4 tab PO DAILY 07/17/18 [ History] - CURRENT (IN HOUSE) MEDS Current Meds: Current Medications Lactated Ringer's (Ringers, Lactated) 1,000 mls @ 125 mls/hr IV ASDIRECTED MARLENE Sodium Chloride (Saline Flush) 10 ml FLUSH ASDIRECTED PRN PRN Reason: Keep Vein Open Sodium Chloride (Saline Flush) 2.5 ml FLUSH ASDIRECTED PRN PRN Reason: Keep Vein Open Sodium Chloride (Saline Flush) 10 ml FLUSH ASDIRECTED PRN PRN Reason: Keep Vein Open Sodium Chloride (Saline Flush) 2.5 ml FLUSH ASDIRECTED PRN PRN Reason: Keep Vein Open Sodium Chloride (Normal Saline) 10 ml IV ASDIRECTED PRN PRN Reason: IV Use Discontinued Medications Fentanyl (Sublimaze) Confirm Administered Dose 100 mcg .ROUTE .STK-MED ONE Stop: 07/21/18 07:00 Midazolam HCl (Versed 1 Mg/Ml) Confirm Administered Dose 2 mg .ROUTE .STK-MED ONE Stop: 07/21/18 07:00 Propofol (Diprivan 20 Ml) Confirm Administered Dose 400 mg .ROUTE .STK-MED ONE Stop: 07/21/18 07:00
--- NOTE | 2018-07-21 09:23 | PCM.OPNOTE ---
- General Post-Op/Procedure Note Date of Surgery/Procedure: 07/21/18 Operative Procedure(s): Diagnostic colonoscopy Findings: Sigmoid colon polyps x 2, diverticulosis Pre Op Diagnosis: Diverticulitis Post-Op Diagnosis: Sigmoid colon polyps @ 40 and 45 cm. Diverticulosis of descending and sigmoid colon Anesthesia Technique: MAC Primary Surgeon: Olga Lidia Dejesus Condition: Good Free Text/Narrative:: Intake & Output 07/20/18 07/21/18 07/21/18 22:59 06:59 14:59 Intake Total 900 Balance 900
--- NOTE | 2018-07-22 18:55 | OR ---
SURGEON: EMILY STORY MD DATE OF PROCEDURE: 07/21/2018 PREOPERATIVE DIAGNOSIS: History of diverticulitis. POSTOPERATIVE DIAGNOSES: 1. Diverticulosis. 2. Sigmoid colon polyps x2. PROCEDURE PERFORMED: Diagnostic colonoscopy. ANESTHESIA: MAC. INSTRUMENT USED: Olympus colonoscope. EXTENT OF EXAM: To the cecum. PREPARATION: Good. LIMITATIONS: None. INDICATION FOR EXAMINATION: The patient is a 33-year-old male, who recently experienced a second episode of diverticulitis. He had had a previous colonoscopy that showed a large polyp. He was supposed to come back for a one year followup colonoscopy, but did not. He is here after his episode of diverticulitis to discuss his options. After review of the case and the previous note, the decision was made to proceed with another diagnostic colonoscopy. I explained him the procedure, expected perioperative course, and risks including bleeding, infection, or damage to surrounding structures including perforation. The patient verbalized understanding and wishes to proceed. PROCEDURE IN DETAIL: The patient was brought to the endoscopy suite and placed in the left lateral decubitus position. A time-out was completed verifying the patient's name, age, date of , allergies, and procedure to be performed. Monitored anesthesia care was induced and continuous oxygen was provided via nasal cannula throughout the procedure. After adequate sedation was achieved, a digital rectal exam was performed. This showed one small enlarged internal hemorrhoid. A well lubricated colonoscope was inserted in the rectum and advanced under direct visualization to the level of the cecum. The cecum was identified by both visual and anatomic landmarks. A photograph was taken of the cecal cap as well as with the scope retroflexed within the cecum. The scope was then fully withdrawn while examining the color, texture, anatomy, and integrity of the mucosa from the cecum to the anal canal. From the descending colon down to the rectum, the patient had large broad-based diverticula. At 45 cm, a smooth pedunculated polyp was noted. This did not have characteristics of a tubular adenoma or venice malignancy. It was removed using a hot snare and sent to Pathology labeled as sigmoid colon polyp #1. At 40 cm, I identified the previous inked margin from his last colonoscopy. In the same area, another similar appearing polyp was noted. This was removed using the hot snare as well and sent to Pathology labeled as sigmoid colon polyp #2. The scope was then brought into the rectum and retroflexed to allow visualization of the anal canal opening. The hemorrhoids appeared grossly normal other than the mildly enlarged single column hemorrhoid. A photograph was taken. The scope was straightened out and fully withdrawn. The cecum to anus time was 20 minutes. The patient tolerated the procedure well and was taken to PACU in stable condition. ENDOSCOPIC DIAGNOSES: 1. Diverticulosis. 2. Sigmoid colon polyps x2. RECOMMENDATIONS: Follow up in clinic in 2 weeks. DINA GARCIA /[id number]
== END 2018-07-21 09:34 | disposition home or self-care (01) ==
LOC: MW.SDS 06:17
PROVIDERS: ATTEND Surgery
DX: K63.5 Polyp of colon (principal); K57.30 Diverticulosis of large intestine without perforation or abscess without bleeding; K57.32 Diverticulitis of large intestine without perforation or abscess without bleeding; F17.210 Nicotine dependence, cigarettes, uncomplicated; J45.909 Unspecified asthma, uncomplicated; G47.30 Sleep apnea, unspecified; E66.9 Obesity, unspecified; Z68.38 Body mass index [BMI] 38.0-38.9, adult; Z88.1 Allergy status to other antibiotic agents; Z88.0 Allergy status to penicillin; Z79.899 Other long term (current) drug therapy; Z99.89 Dependence on other enabling machines and devices
CPT/HCPCS: 45385; J2250; J2704; J3010; J7120; 00811; 88305

== ENCOUNTER 2020-07-21 14:07 | Emergency (ER) | payer OTHER, BC ==
[2020-07-21] MEDS ORDERED: Sodium Chloride 0.9% 10 ML Syringe FLUSH PRN (14:42)
[2020-07-21] MEDS ORDERED: Sodium Chloride 0.9% 2.5 ML Syringe FLUSH PRN (14:42)
[2020-07-21 16:05] LABS: BLOOD UREA NITROGEN,BUN 15 mg/dL (7.0-18.0); CARBON DIOXIDE,CO2 27.1 mmol/L (21.0-32.0); CHLORIDE,CL 102 mmol/L (98-107); GLUCOSE RANDOM 119 mg/dL (74-106); POTASSIUM,K 3.5 mmol/L (3.5-5.1); SODIUM,NA 140 mmol/L (136-148)
[2020-07-21] MEDS ORDERED: Calcium Gluconate 10% 1 GM/10 ML SDV IVPUSH ONE (16:46)
[2020-07-21] MEDS ORDERED: Iopamidol 755 Mg/ML 100 ML Bottle IVPUSH ONE (16:52)
[2020-07-21] MEDS ORDERED: Ketorolac 30 MG/ML SDV IVPUSH ONE (17:39)
--- NOTE | 2020-07-21 17:58 | CT ---
INDICATION: Palpable mass which is possibly an abscess on the back near to the spine. Concern for deep infection. COMPARISON: None available TECHNIQUE: CT examination of the thoracic spine was performed with the uneventful intravenous administration of 100 cc of Isovue 370 4 spiral acquisition. 1.5 mm thick axial, and 2 millimeter thick sagittal and coronal reconstructions were made from the base of the neck through the superior lumbar spine. Please note that all CT scans at this facility use dose modulation, iterative reconstruction, and/or weight-based dosing when appropriate to reduce radiation dose to as low as reasonably achievable. FINDINGS: : A marker has been placed in the area of clinical concern. This corresponds to a well-circumscribed superficial subcutaneous abscess in the left paramedian subcutaneous fat measuring 2.6 x 2.1 x 2.5 centimeters, located at the T9-10 level. There is mild surrounding cellulitis. There is no sign of extension of this inflammatory process into the paraspinous muscles, and certainly no sign of extension into the paraspinous soft tissues. The rest of the soft tissues dorsal to the spine is normal in appearance. There is minimal scoliosis of the thoracic spine convex towards the right. There is no sign of fracture or subluxation. The thoracic vertebral bodies and intervertebral discs are normal in height and are in anatomic alignment. Incidental note is made of a right posterior T5 hemangioma of no clinical concern. There is no sign of paraspinous soft tissue swelling. The visualized mediastinal structures are normal in appearance. The visualized lung is clear. The visualized superior liver is low in density representing fatty infiltration. The visualized superior spleen, pancreas, kidneys, and adrenals are normal in appearance. IMPRESSION: Left paramedian superficial subcutaneous abscess fat measuring 2.6 x 2.1 x 2.5 centimeters at the T9-10 level, with mild surrounding cellulitis. No sign of extension into the paraspinous muscles. Fatty infiltration of the liver. Please note that all CT scans at this facility use dose modulation, iterative reconstruction, and/or weight-based dosing when appropriate to reduce radiation dose to as low as reasonably achievable. Dictated by Heraclio Kimbrough MD @ 07/21/2020 5:56:[address] Heraclio Kimbrough @ Jul 21 2020 5:56PM
[2020-07-21] MEDS ORDERED: Alum Hydrox/Mag Hydrox/Simeth 15 ML, Lidocaine 2% 5 ML PO ONE ×2 (18:00)
[2020-07-21] MEDS ORDERED: cefTRIAXone 1 GM in Premix Bag 1 BAG IV ONE (18:09)
--- NOTE | 2020-07-21 18:27 | EDM.PDOC ---
ED HPI GENERAL MEDICAL PROBLEM - General Chief Complaint: Skin Complaint Stated Complaint: LUMP IN BACK Time Seen by Provider: 07/21/20 14:14 Source of Information: Reports: Patient History Limitations: Reports: No Limitations - History of Present Illness INITIAL COMMENTS - FREE TEXT/NARRATIVE: HISTORY AND PHYSICAL: History of present illness: Patient is a 35-year-old male who presents to the ED today with concern of an infection on his back x2 days. Patient states that he has had a cyst in this area on his back for 2 years and states that he was told that they would not s urgically remove it as it was not bothering the patient at the time. Patient states over the course of the last 2 days, the cyst has now become red and painful and he is concerned of an infection. Patient denies any other associated symptoms or any other symptoms or concerns. Patient denies fever, chills, chest pain, shortness of breath, or cough. Denies headache, neck stiff ness, change in vision, syncope, or near syncope. Denies nausea, vomiting, abdominal pain, diarrhea, constipation, or dysuria. Has not noted any blood in urine or stool. Patient has been eating and drinking appropriately. Review of systems: As per history of present illness and below otherwise all systems reviewed and negative. Past medical history: As per history of present illness and as reviewed below otherwise noncontributory. Surgical history: As per history of present illness and as reviewed below otherwise noncontributory. Social history: See social history for further information Family history: As per history of present illness and as reviewed below otherwise noncontributory. Physical exam: General: Patient is alert, oriented, and in no acute distress. Patient sitting comfortably on exam table. Patient is mildly tachycardic 10 5-1 tens on exam, otherwise vitally stable and reviewed by me. HEENT: Atraumatic, normocephalic, pupils equal and reactive bilaterally, negative for conjunctival pallor or scleral icterus, mucous membranes moist, TMs normal bilaterally, throat clear, neck supple, nontender, trachea midline. No drooling or trismus noted. No meningeal signs. No hot potato voice noted. Lungs: Clear to auscultation, breath sounds equal bilaterally, chest nontender. Heart: S1S2, regular rate and rhythm without overt murmur Abdomen: Soft, nondistended, nontender. Negative for masses or hepatosplenomegaly. Negative for costovertebral tenderness. Pelvis: Stable nontender. Genitourinary: Deferred. Rectal: Deferred. Skin: Intact, warm, dry. No lesions or rashes noted. Extremities: There is a 3.5 cm x 3.5 cm abscess of the mid left sided back, with surrounding cellulitis adjacent to the left sided thoracic paraspinous muscle. Patient has full range of motion of the complete spine but does have pain with range of motion of the area of the abscess. Otherwise, atraumatic, negative for cords or calf pain. Neurovascular unremarkable. Neuro: Awake, alert, oriented. Cranial nerves II through XII unremarkable. Cerebellum unremarkable. Motor and sensory unremarkable throughout. Exam nonfocal. Notes: Upon arrival to the ED, patient is mildly tachycardic 110s on exam, otherwise vitally stable and nontoxic on exam. He does have a notable abscess to the left sided paraspinous muscle, with extension of cellulitis over the spine. Due to the location of this abscess, I would like to obtain lab work and a CT scan to determine the extent of the and infection underlying. Lab work shows a corrected calcium of 7.9 mg/dL, and a mildly elevated ALT at 67. Otherwise unremarkable lab work. Thoracic spine CT with contrast shows left paramedian superficial subcutaneous abscess fat measuring 2.6 x 2.1 x 2.5 cm at the T9-T10 level with mild surrounding cellulitis. No sign of extension into the paraspinous muscles. Fatty infiltration of the liver. Upon reevaluation of patient, his mild tachycardia has now completely resolved and he is 80 bpm otherwise remains vitally stable and comfortable on exam. See procedure note below for incision and drainage. Patient tolerated procedure well and discharged home in stable condition. Discussed importance for follow-up with a primary care provider and for repeat lab work for low calcium today. All incidental findings of imaging and lab work discussed with patient and the importance to have this followed up with his primary care provider.. Voices understanding and is agreeable to plan of care. Denies any further questions or concerns at this time. Diagnostics: CBC, CMP, thoracic spine with contrast Therapeutics: Calcium gluconate, Rocephin, Toradol, GI cocktail Prescription: Bactrim DS, Keflex Impression: Cellulitis and abscess of back Hypocalcemia Plan: 1. Keep the area clean and dry. Continue to monitor for signs of worsening versus improving infection as discussed. Take medication as prescribed. Repeat your lab work checking your calcium as discussed with your primary care pr ovider. 2. Tylenol and/or ibuprofen as directed and as needed for pain management and discomfort. 3. Please follow-up with your primary care provider as discussed. Return to the ED as needed and as discussed. 4. Keep the packing in the wound for 48 hours before removing. Definitive disposition and diagnosis as appropriate pending reevaluation and review of above. right side of back Pain Score (Numeric/FACES): 7 - Related Data Allergies Allergy/AdvReac Type Severity Reaction Status Date / Time erythromycin base Allergy "eye Verified 07/21/20 14:15 [Erythromycin Base] infection got worse" Penicillins Allergy Cannot Verified 07/21/20 14:15 Remember Home Meds: Home Meds Simvastatin [Zocor] 1 tab PO BEDTIME 09/19/17 [History] Multivitamin [Multivitamins] 1 tab PO DAILY 12/02/17 [History] Fish Oil/Talala-3 Fatty Acids [Fish Oil 1,000 MG] 4 tab PO DAILY 07/17/18 [H istory] Sulfamethoxazole/Trimethoprim [Bactrim Ds Tablet] 1 each PO BID 7 Days #14 tablet 07/21/20 [Rx] cephALEXin [Keflex] 500 mg PO Q8H 7 Days #21 cap 07/21/20 [Rx] Past Medical History HEENT History: Reports: Allergic Rhinitis, Other (See Below) Other HEENT History: wears glasses/contacts Cardiovascular History: Reports: High Cholesterol Respiratory History: Reports: Asthma, Sleep Apnea Other Respiratory History: sports induced asthma as a teenager, uses CPAP Gastrointestinal History: Reports: Colon Polyp, Diverticulosis, Hemorrhoids Other Gastrointestinal History: diverticulitis last year, occasional heartburn Genitourinary History: Reports: None Musculoskeletal History: Reports: Fracture Other Musculoskeletal History: hx fx hand and left big toe Neurological History: Reports: None Psychiatric History: Reports: Anxiety, Depression Endocrine/Metabolic History: Reports: Obesity/BMI 30+ Hematologic History: Reports: None Immunologic History: Reports: None Oncologic (Cancer) History: Reports: None Dermatologic History: Reports: None - Infectious Disease History Infectious Disease History: Reports: Chicken Pox - Past Surgical History Head Surgeries/Procedures: Reports: None HEENT Surgical History: Reports: Adenoidectomy, Naso-Sinus Surgery, Oral Surgery Cardiovascular Surgical History: Reports: None Respiratory Surgical History: Reports: None GI Surgical History: Reports: Colonoscopy, Polypectomy, Other (See Below) Other GI Surgeries/Procedures: 8 inches of large colon removed Male Surgical History: Reports: None Endocrine Surgical History: Reports: None Neurological Surgical History: Reports: None Musculoskeletal Surgical History: Reports: Other (See Below) Other Musculoskeletal Surgeries/Procedures:: R hand x2 ( 5th metacarpal) plus removal of screws Oncologic Surgical History: Reports: None Dermatological Surgical History: Reports: None Social & Family History - Family History Family Medical History: No Pertinent Family History - Tobacco Use Tobacco Use Status *Q: Former Tobacco User Used Tobacco, but Quit: Yes Month/Year Tobacco Last Used: 1 - Caffeine Use Caffeine Use: Reports: Coffee, Energy Drinks - Recreational Drug Use Recreational Drug Use: No ED ROS GENERAL - Review of Systems Review Of Systems: Comprehensive ROS is negative, except as noted in HPI. ED EXAM, SKIN/RASH Exam: See Below (See dictation) ED SKIN PROCEDURES - I&D Site: mid left sided back Skin Prep: Providone-Iodine (Betadine) Local Anesthesia: Lidocaine: 1% Plain Local Anesthetic Volume: 5cc Area Incised With: 11 Blade Drainage: Purulent, Bloody, Moderate Amount Probed to Break Up Loculations: Yes Packed With: 1/4 in. Iodoform Sterile Dressing: Adhesive Dressing Complications: No Progress/Comments: Patient consent: The procedure and its alternatives were discussed with patient. Risks were discussed including anesthetic risk, risk of bleeding, and damage to adjacent structures. The patient provided verbal informed consent. Patient was given the opportunity to ask questions and patient consented to procedure. Timeout was performed with nursing staff at bedside. Patient was placed in the left lateral decubitus position. Patient tolerated the procedure well. Course - Vital Signs Last Recorded V/S: Last Vital Signs Temp 98.9 F 07/21/20 14:16 Pulse 95 07/21/20 18:37 Resp 17 07/21/20 18:37 BP 110/61 07/21/20 18:37 Pulse Ox 99 07/21/20 18:37 - Orders/Labs/Meds Orders: Active Orders 24 hr Category Date Time Status CULTURE WOUND [RM] Stat Lab 07/21/20 18:24 Received Saline Lock Insert [OM.PC] Stat Oth 07/21/20 14:42 Ordered Labs: Laboratory Tests 07/21/20 07/21/20 Range/Units 13:24 13:24 WBC 7.06 (4.0-11.0) K/uL RBC 4.54 (4.50-5.90) M/uL Hgb 13.9 (13.0-17.0) g/dL Hct 41.3 (38.0-50.0) % MCV 91.0 (80.0-98.0) fL MCH 30.6 (27.0-32.0) pg MCHC 33.7 (31.0-37.0) g/dL RDW Std Deviation 42.5 (28.0-62.0) fl RDW Coeff of Evan 13 (11.0-15.0) % Plt Count 193 (150-400) K/uL MPV 10.60 (7.40-12.00) fL Neut % (Auto) 61.7 (48.0-80.0) % Lymph % (Auto) 29.0 (16.0-40.0) % [place] % (Auto) 7.6 (0.0-15.0) % Eos % (Auto) 1.6 (0.0-7.0) % Baso % (Auto) 0.1 (0.0-1.5) % Neut # (Auto) 4.4 (1.4-5.7) K/uL Lymph # (Auto) 2.1 (0.6-2.4) K/uL [place] # (Auto) 0.5 (0.0-0.8) K/uL Eos # (Auto) 0.1 (0.0-0.7) K/uL Baso # (Auto) 0.0 (0.0-0.1) K/uL Nucleated RBC % 0.0 /100WBC Nucleated RBCs # 0 K/uL Sodium 140 (136-148) mmol/L Potassium 3.5 (3.5-5.1) mmol/L Chloride 102 (98-107) mmol/L Carbon Dioxide 27.1 (21.0-32.0) mmol/L BUN 15 (7.0-18.0) mg/dL Creatinine 1.1 (0.8-1.3) mg/dL Est Cr Clr Drug Dosing 98.62 mL/min Estimated GFR (MDRD) > 60.0 ml/min Glucose 119 H (74-106) mg/dL Calcium 8.2 L (8.5-10.1) mg/dL Total Bilirubin 0.2 (0.2-1.0) mg/dL AST 17 (15-37) IU/L ALT 67 H (14-63) IU/L Alkaline Phosphatase 49 (46-116) U/L Total Protein 7.0 (6.4-8.2) g/dL Albumin 3.8 (3.4-5.0) g/dL Globulin 3.2 (2.6-4.0) g/dL Albumin/Globulin Ratio 1.2 (0.9-1.6) Meds: Medications Discontinued Medications Generic Name Dose Route Start Last Admin Trade Name Freq PRN Reason Stop Dose Admin Calcium Gluconate 1 gm 07/21/20 16:46 07/21/20 17:28 Calcium Gluconate 10% 1 Gm/10 Ml Sdv IVPUSH 07/21/20 16:47 1 gm ONETIME ONE Administration Al Hydroxide/Mg Hydroxide 15 0 ml 07/21/20 18:00 07/21/20 18:10 ml/ Lidocaine HCl 5 ml PO 07/21/20 18:01 1 each ONETIME ONE Administration Ceftriaxone Sodium/Dextrose 1 50 mls @ 100 mls/hr 07/21/20 18:09 07/21/20 18:33 gm/ Premix IV 07/21/20 18:38 100 mls/hr ONETIME ONE Administration Iopamidol 100 ml 07/21/20 16:52 07/21/20 16:52 Iopamidol 755 Mg/Ml 100 Ml Bottle IVPUSH 07/21/20 16:53 100 ml ONETIME ONE Administration Ketorolac Tromethamine 30 mg 07/21/20 17:39 07/21/20 17:48 Ketorolac 30 Mg/Ml Sdv IVPUSH 07/21/20 17:40 30 mg ONETIME ONE Administration Lidocaine HCl 10 ml 07/21/20 18:00 07/21/20 18:11 Lidocaine 1% 5 Ml Sdv INJECT 07/21/20 18:01 10 ml ONETIME ONE Administration Sodium Chloride 10 ml 07/21/20 14:42 07/21/20 15:20 Sodium Chloride 0.9% 10 Ml Syringe FLUSH 10 ml ASDIRECTED PRN Administration Keep Vein Open Sodium Chloride 2.5 ml 07/21/20 14:42 07/21/20 15:20 Sodium Chloride 0.9% 2.5 Ml Syringe FLUSH 2.5 ml ASDIRECTED PRN Administration Keep Vein Open Departure - Departure Time of Disposition: 18:26 Disposition: Home, Self-Care 01 Clinical Impression: Hypocalcemia, Cellulitis and abscess of trunk - Discharge Information Prescriptions: Sulfamethoxazole/Trimethoprim [Bactrim Ds Tablet] 1 each PO BID 7 Days #14 tablet cephALEXin [Keflex] 500 mg PO Q8H 7 Days #21 cap Instructions: Skin Abscess, [id number] Referrals: Roberto Wan, [facility] [Primary Care Provider] - Forms: ED Department Discharge Additional Instructions: The following information is given to patients seen in the emergency department who are being discharged to home. This information is to outline your options for follow-up care. We provide all patients seen in our emergency department with a follow-up referral. The need for follow-up, as well as the timing and circumstances, are variable depending upon the specifics of your emergency department visit. If you don't have a primary care physician on staff, we will provide you with a referral. We always advise you to contact your personal physician following an emergency department visit to inform them of the circumstance of the visit and for follow-up with them and/or the need for any referrals to a consulting specialist. The emergency department will also refer you to a specialist when appropriate. This referral assures that you have the opportunity for follow-up care with a specialist. All of these measure are taken in an effort to provide you with optimal care, which includes your follow-up. Under all circumstances we always encourage you to contact your private physician who remains a resource for coordinating your care. When calling for follow-up care, please make the office aware that this follow-up is from your recent emergency room visit. If for any reason you are refused follow-up, please contact the [facility] at and asked to speak to the emergency department charge nurse. [facility] [address] [place] [id number] [facility] [address] [place] [address] 1. Keep the area clean and dry. Continue to monitor for signs of worsening versus improving infection as discussed. Take medication as prescribed. Repeat your lab work checking your calcium as discussed with your primary care provider. 2. Tylenol and/or ibuprofen as directed and as needed for pain management and discomfort. 3. Please follow-up with your primary care provider as discussed. Return to the ED as needed and as discussed. 4. Keep the packing in the wound for 48 hours before removing. Sepsis Event Note (ED) - Evaluation Sepsis Screening Result: No Definite Risk - Focused Exam Vital Signs: Vital Signs Temp Pulse Resp BP Pulse Ox 07/21/20 18:37 95 17 110/61 99 07/21/20 14:16 98.9 F 106 H 18 173/117 H 99 - My Orders Last 24 Hours: My Active Orders 07/21/20 14:42 Saline Lock Insert [OM.PC] Stat 07/21/20 18:24 CULTURE WOUND [RM] Stat - Assessment/Plan Last 24 Hours: My Active Orders 07/21/20 14:42 Saline Lock Insert [OM.PC] Stat 07/21/20 18:24 CULTURE WOUND [RM] Stat
== END 2020-07-21 19:12 | disposition home or self-care (01) ==
LOC: MW.ED 14:07
DX: L03.312 Cellulitis of back [any part except buttock and flank] (principal); L02.212 Cutaneous abscess of back [any part, except buttock and flank]; E83.51 Hypocalcemia; E78.00 Pure hypercholesterolemia, unspecified; E66.9 Obesity, unspecified; Z87.891 Personal history of nicotine dependence; Z88.0 Allergy status to penicillin; Z88.1 Allergy status to other antibiotic agents; Z68.38 Body mass index [BMI] 38.0-38.9, adult
CPT/HCPCS: 72129; 80053; 85025; 87070; 96365; 96375; 99283; A9270; J0610; J0696; J1885; Q9967; 10060

== ENCOUNTER 2022-08-01 07:16 | Emergency (ER) | payer OTHER, BC ==
[2022-08-01] MEDS ORDERED: Lactated Ringers 1,000 ML IV SCH (07:30)
[2022-08-01 08:02] LABS: A/G RATIO 1.3 (0.9-1.6); ALANINE AMINOTRANSFERASE,ALT 28 IU/L (14-63); ALBUMIN 4.2 g/dL (3.4-5.0); ALKALINE PHOSPHATASE 63 U/L (46-116); ASPARTATE AMNIOTRANSFERASE,AST 14 IU/L (15-37); BILIRUBIN TOTAL 0.7 mg/dL (0.2-1.0); BLOOD UREA NITROGEN,BUN 25 mg/dL (7.0-18.0); CALCIUM 8.9 mg/dL (8.5-10.1); CARBON DIOXIDE,CO2 21.8 mmol/L (21.0-32.0); CHLORIDE,CL 104 mmol/L (98-107); CREATININE 1.2 mg/dL (0.8-1.3); EST CRCL DRUG DOSING (CG) 85.92 mL/min; GLUCOSE RANDOM 150 mg/dL (74-106); POTASSIUM,K 3.8 mmol/L (3.5-5.1); PROTEIN TOTAL,TP 7.5 g/dL (6.4-8.2); SODIUM,NA 140 mmol/L (136-148)
[2022-08-01 08:03] LABS: ESTIMATED GFR 81 mL/min (>60)
== END 2022-08-01 09:10 | disposition home or self-care (01) ==
LOC: MW.ED 07:16
DX: R42 Dizziness and giddiness (principal); R11.2 Nausea with vomiting, unspecified; T50.995A Adverse effect of other drugs, medicaments and biological substances, initial encounter; E78.00 Pure hypercholesterolemia, unspecified; J45.909 Unspecified asthma, uncomplicated; F17.210 Nicotine dependence, cigarettes, uncomplicated; E66.9 Obesity, unspecified; Z68.38 Body mass index [BMI] 38.0-38.9, adult; Z88.1 Allergy status to other antibiotic agents; Z88.0 Allergy status to penicillin
CPT/HCPCS: 36415; 70450; 80053; 84484; 93005; 96360; 99285; J7120; 93010; 99283

== ENCOUNTER 2023-12-24 12:37 | Emergency (ER) | payer OTHER, BC ==
[2023-12-24] MEDS: Ibuprofen 600 MG Tab PO ONE (13:09)
[2023-12-24] MEDS: Ondansetron 4 MG Tab.DIS PO ONE (13:09)
[2023-12-24 13:18] LABS: BASOPHILS ABSOLUTE AUTO 0.02 K/uL (0.00-0.20); BASOPHILS PERCENT AUTO 0.3 % (0.0-1.0); EOSINOPHILS ABSOLUTE AUTO 0.11 K/uL (0.00-0.45); EOSINOPHILS PERCENT AUTO 1.5 % (0.0-6.0); HEMATOCRIT 45.5 % (42.0-52.0); HEMOGLOBIN 15.6 g/dL (14.0-18.0); IMMATURE GRAN ABSOLUTE AUTO 0.01 K/uL (0.00-0.05); IMMATURE GRAN PERCENT AUTO 0.1 % (0.0-0.4); LYMPHOCYTES ABSOLUTE AUTO 1.79 K/uL (1.00-4.80); LYMPHOCYTES PERCENT AUTO 23.7 % (24.0-44.0); MEAN CORPUSCULAR HEMOGLOBIN 30.5 pg (28.0-32.0); MEAN CORPUSCULAR HGB CONC 34.3 g/dL (32.0-36.0); MEAN CORPUSCULAR VOLUME 88.9 fL (83.0-99.0); MEAN PLATELET VOLUME 10.5 fL (9.4-12.4); MONOCYTES PERCENT AUTO 7.9 % (0.0-8.0); NEUTROPHILS ABSOLUTE AUTO 5.03 K/uL (1.80-7.70); NEUTROPHILS PERCENT AUTO 66.5 % (41.0-71.0); PLATELET COUNT,PLT 157 K/uL (150-400); RED BLOOD CELL COUNT 5.12 M/uL (4.52-5.90); WHITE BLOOD CELL COUNT,WBC 7.56 K/uL (3.9-11.3)
[2023-12-24 13:52] LABS: A/G RATIO 1.3 (0.9-1.6); ALBUMIN 3.9 g/dL (3.4-5.0); BILIRUBIN TOTAL 0.5 mg/dL (0.2-1.0); CALCIUM 9.2 mg/dL (8.5-10.1); CARBON DIOXIDE,CO2 25.9 mmol/L (21.0-32.0); CREATININE 1.2 mg/dL (0.8-1.3); EST CRCL DRUG DOSING (CG) 85.1 mL/min; POTASSIUM,K 4.3 mmol/L (3.5-5.1)
== END 2023-12-24 14:10 | disposition home or self-care (01) ==
LOC: MW.ED 12:37
DX: B34.9 Viral infection, unspecified (principal); E78.00 Pure hypercholesterolemia, unspecified; E66.9 Obesity, unspecified; J45.909 Unspecified asthma, uncomplicated; Z87.891 Personal history of nicotine dependence; Z79.899 Other long term (current) drug therapy; Z75.8 Other problems related to medical facilities and other health care; Z88.0 Allergy status to penicillin; Z88.1 Allergy status to other antibiotic agents; Z68.42 Body mass index [BMI] 45.0-49.9, adult
CPT/HCPCS: 36415; 71045; 80053; 85025; 99284; A9270

== ENCOUNTER 2023-12-25 08:48 | Emergency (ER) | payer OTHER, BC ==
[2023-12-25] MEDS: Ibuprofen 600 MG Tab PO ONE (09:40)
[2023-12-25] MEDS: Acetaminophen 500 MG Tab PO ONE (09:40)
== END 2023-12-25 09:42 | disposition home or self-care (01) ==
LOC: MW.ED 08:48
DX: L53.9 Erythematous condition, unspecified (principal); L08.9 Local infection of the skin and subcutaneous tissue, unspecified; T50.Z95A Adverse effect of other vaccines and biological substances, initial encounter; E66.9 Obesity, unspecified; Z88.0 Allergy status to penicillin; Z88.1 Allergy status to other antibiotic agents; Z88.8 Allergy status to other drugs, medicaments and biological substances; Z79.899 Other long term (current) drug therapy; Z68.41 Body mass index [BMI] 40.0-44.9, adult
CPT/HCPCS: 99283; A9270